=== PATIENT | female | born 1960 | race Two or more races ===

== ENCOUNTER 2019-08-22 12:14 | Outpatient (CLI) | payer MEDICARE, MEDICAID | END 2019-08-22 12:15 | disposition home or self-care (01) | LOC: RT 12:14 | PROVIDERS: ATTEND Internal Medicine Cardiovascular Disease | DX: I10 Essential (primary) hypertension (principal); Z13.6 Encounter for screening for cardiovascular disorders | CPT/HCPCS: 93005 ==

== ENCOUNTER 2019-12-03 16:55 | Outpatient (CLI) | payer MEDICARE, MEDICAID ==
--- NOTE | 2019-12-04 02:44 | Ultrasound Report ---
Reason: ABNORMAL VAGINAL BLEEDING Procedure Date: 12/03/2019 Accession Number: [id number] / [id number] Procedure: US - Pelvic w/Transvaginal CPT Code: Final Report FULL RESULT: EXAM: PELVIC ULTRASOUND EXAM DATE: 12/03/2019 06:04 PM. CLINICAL HISTORY: ABNORMAL VAGINAL BLEEDING. COMPARISON: None. TECHNIQUE: Realtime transabdominal pelvic scan performed to identify the uterus and adnexa and as an overview of other pelvic structures, followed by transvaginal scan to provide greater detail of the uterus and adnexa, with static image documentation. FINDINGS: Uterus: 7.0 x 3.6 x 5.0 cm, volume 65.8 cc. Anteverted position. Mildly heterogeneous. Masses: Anterior fundal submucosal fibroid measuring 1.9 x 1.8 x 1.6 cm. Endometrium: 4 mm. Heterogeneous ill-defined endometrium is not well seen. Cervix: Unremarkable. Right Ovary: Right ovary not visualized due to body habitus and bowel gas. Left Ovary: Left ovary not visualized due to body habitus and bowel gas. Free Fluid: None. Other: None. IMPRESSION: 1. Small anterior fundal submucosal fibroid measuring 1.9 cm. 2. Heterogeneous ill-defined endometrium. No evidence of endometrial thickening. 3. Ovaries not visualized due to body habitus and bowel gas. RADIA
== END 2019-12-03 16:56 | disposition home or self-care (01) ==
LOC: DI 16:55
PROVIDERS: ATTEND Internal Medicine
DX: D25.0 Submucous leiomyoma of uterus (principal)
CPT/HCPCS: 76830; 76856

== ENCOUNTER 2020-01-01 09:38 | Outpatient (CLI) | payer MEDICARE, MEDICAID ==
[2020-01-01 10:01] LABS: BASOPHILS % (AUTO) 0.2 %; EOSINOPHILS # (AUTO) 0.1 10^3/uL (0.0-0.7); EOSINOPHILS % (AUTO) 1.8 %; HGB - HEMOGLOBIN 12.7 g/dL (12.0-16.0); LYMPHOCYTES # (AUTO) 1.6 10^3/uL (1.5-3.5); LYMPHOCYTES % (AUTO) 37.2 %; MEAN CORPUSCULAR HEMOGLOBIN 31.1 pg (27.0-31.0); MEAN CORPUSCULAR HGB CONC 33.2 g/dL (32.0-36.0); MEAN CORPUSCULAR VOLUME 93.6 fL (81.0-99.0); MEAN PLATELET VOLUME 9.6 fL (7.9-10.8); MONOCYTES # (AUTO) 0.4 10^3/uL (0.0-1.0); MONOCYTES % (AUTO) 9.9 %; NEUTROPHILS # (AUTO) 2.2 10^3/uL (1.5-6.6); NEUTROPHILS % (AUTO) 50.7 %; PLT - PLATELET COUNT 204 10^3/uL (130-450); RED BLOOD COUNT 4.08 10^6/uL (4.20-5.40); RED CELL DISTRIBUTION WIDTH 12.5 % (12.0-15.0); WHITE BLOOD COUNT 4.4 x10^3/uL (4.8-10.8)
== END 2020-01-01 09:39 | disposition home or self-care (01) ==
LOC: LAB 09:38
PROVIDERS: ATTEND Obstetrics & Gynecology
DX: N95.0 Postmenopausal bleeding (principal)
CPT/HCPCS: 36415; 85025

== ENCOUNTER 2021-02-13 19:45 | Emergency (ER) | payer MEDICAID, MEDICARE, OTHER ==
--- OUTSIDE RECORDS SUMMARY | 2021-02-13 20:13 | EXTERNAL MEDICAL SUMMARY RPT | Continuity of Care Document ---
:1960 Demographics Phone Unavailable Preferred Language Unknown Marital Status Unknown Faith Affiliation Unknown Race Unknown Ethnic Group Unknown Author Organization [facility] Address [address] [phone] Phone Allergies Encounters Medications Problems Results
[2021-02-13 20:16] LABS: BASOPHILS % (AUTO) 0.2 %; EOSINOPHILS # (AUTO) 0.1 10^3/uL (0.0-0.7); EOSINOPHILS % (AUTO) 1.1 %; HCT - HEMATOCRIT 37.6 % (37.0-47.0); HGB - HEMOGLOBIN 13.2 g/dL (12.0-16.0); LYMPHOCYTES # (AUTO) 1.3 10^3/uL (1.5-3.5); LYMPHOCYTES % (AUTO) 21.1 %; MEAN CORPUSCULAR HEMOGLOBIN 31.2 pg (27.0-31.0); MEAN CORPUSCULAR HGB CONC 35.1 g/dL (32.0-36.0); MEAN CORPUSCULAR VOLUME 88.9 fL (81.0-99.0); MEAN PLATELET VOLUME 9.8 fL (7.9-10.8); MONOCYTES # (AUTO) 0.6 10^3/uL (0.0-1.0); NEUTROPHILS # (AUTO) 4.3 10^3/uL (1.5-6.6); NEUTROPHILS % (AUTO) 67.3 %; PLT - PLATELET COUNT 226 10^3/uL (130-450); RED BLOOD COUNT 4.23 10^6/uL (4.20-5.40); RED CELL DISTRIBUTION WIDTH 13.2 % (12.0-15.0); WHITE BLOOD COUNT 6.3 x10^3/uL (4.8-10.8)
--- NOTE | 2021-02-13 20:21 | XRAY Report ---
PROCEDURE: Chest 1 View X-Ray INDICATIONS: Chest Pain TECHNIQUE: One view of the chest was acquired. COMPARISON: None FINDINGS: Surgical changes and devices: None. Lungs and pleura: No pleural effusions or pneumothorax. Lungs are clear. Mediastinum: Mediastinal contours appear normal. Heart size is normal. Bones and chest wall: No suspicious bony lesions. Overlying soft tissues appear unremarkable. IMPRESSION: No acute cardiopulmonary disease process. Reviewed by: Arleen Weiss MD, PhD on 02/13/2021 8:19 PM PDT Approved by: Arleen Weiss MD, PhD on 02/13/2021 8:19 PM PDT Station ID: [id number]
[2021-02-13 20:56] LABS: ALBUMIN 4.1 g/dL (3.2-5.5); ALBUMIN/GLOBULIN RATIO 1.3 (1.0-2.2); BILIRUBIN,TOTAL 2.1 mg/dL (0.2-1.0); CALCIUM 9.6 mg/dL (8.5-10.3); CREATININE 0.6 mg/dL (0.4-1.0); POTASSIUM 3.6 mmol/L (3.5-5.0); TOTAL PROTEIN 7.2 g/dL (6.7-8.2)
--- NOTE | 2021-02-13 21:06 | ED Physician Documentation ---
PD HPI CHEST PAIN - Stated complaint Stated Complaint: CHEST PX, LFT ARM PX - Chief complaint Chief Complaint: Cardiac - History obtained from History obtained from: Patient - History of Present Illness Timing - onset: Enter time (02:00), Today Timing - onset during: Sleep Timing - details: Abrupt onset, Constant, Waxing and waning Pain level now: 10 Quality: Pain Location: Substernal Radiation: Neck (right side of neck) Improved by: Nothing Worsened by: Other (no exacerbating factors) Associated symptoms: Nausea. No: Shortness of air, Diaphoresis, Vomiting, Feel ing faint / dizzy, General Weakness, Palpitations, Cough Similar symptoms before: Has not had sx before Recently seen: Not recently seen Review of Systems Constitutional: reports: Reviewed and negative Cardiac: reports: Chest pain / pressure. denies: Palpitations, Pedal edema, Calf pain Respiratory: reports: Reviewed and negative GI: reports: Nausea. denies: Abdominal Pain, Abdominal Swelling, Vomiting, Constipation, Diarrhea : denies: Dysuria, Hematuria Musculoskeletal: denies: Back pain PD PAST MEDICAL HISTORY - Past Medical History Past Medical History: Yes Cardiovascular: Hypertension, High cholesterol - Present Medications Home Medications: Ambulatory Orders Medication Instructions Recorded Confirmed Lidocaine Viscous 2% [Xylocaine 10 ml PO Q6HR PRN #100 ml 02/13/21 Viscous 2%] - Allergies Allergies/Adverse Reactions: Allergies Allergy/AdvReac Type Severity Reaction Status Date / Time pseudoephedrine Allergy Mild Hives Verified 02/13/21 21:26 PD ED PE NORMAL - Vitals Vital signs reviewed: Yes - General General: Alert and oriented X 3, No acute distress, Well developed/nourished - HEENT HEENT: Moist mucous membranes - Cardiac Cardiac: RRR, No murmur - Respiratory Respiratory: No respiratory distress, Clear bilaterally - Abdomen Abdomen: Normal bowel sounds, Soft, Non tender, Non distended - Back Back: No CVA TTP - Neuro Neuro: Alert and oriented X 3 PD ED PE EXPANDED - Extremities Extremities: Pedal edema bilateral (mild/1+) LUZMARIA LE visual: 1 - rash (confluent, flat erythema with faint margins, no abnormal heat to touch) Results - Vitals Vitals: Vital Signs - 24 hr 02/13/21 02/13/21 02/13/21 19:56 22:00 23:48 Temperature 36.4 C L Heart Rate 77 73 73 Respiratory 24 18 18 Rate Blood Pressure 184/89 H 170/53 H 161/66 H O2 Saturation 96 97 95 Oxygen O2 Source Room air - EKG (time done) No standard instances Rate: Rate (enter#) (77) Rhythm: NSR [place]: LAD Intervals: Other (borderline IVCD) QRS: Poor R wave progression Ischemia: Normal ST segments Compare to prior EKG: Unchanged from prior EKG - Labs Labs: Laboratory Tests 02/13/21 02/13/21 02/13/21 20:10 20:10 20:10 WBC 6.3 RBC 4.23 Hgb 13.2 Hct 37.6 MCV 88.9 MCH 31.2 H MCHC 35.1 RDW 13.2 Plt Count 226 MPV 9.8 Neut # (Auto) 4.3 Lymph # (Auto) 1.3 L [place] # (Auto) 0.6 Eos # (Auto) 0.1 Baso # (Auto) 0.0 Absolute Nucleated RBC 0.00 Nucleated RBC % 0.0 Sodium 136 Potassium 3.6 Chloride 94 L Carbon Dioxide 29 Anion Gap 13.0 BUN 8 Creatinine 0.6 Estimated GFR (MDRD) 102 Glucose 375 H POC Whole Bld Glucose Calcium 9.6 Total Bilirubin 2.1 H AST 70 H ALT 50 Alkaline Phosphatase 87 Troponin I High Sens 10.0 Total Protein 7.2 Albumin 4.1 Globulin 3.1 Albumin/Globulin Ratio 1.3 Lipase 23 02/13/21 23:42 WBC RBC Hgb Hct MCV MCH MCHC RDW Plt Count MPV Neut # (Auto) Lymph # (Auto) [place] # (Auto) Eos # (Auto) Baso # (Auto) Absolute Nucleated RBC Nucleated RBC % Sodium Potassium Chloride Carbon Dioxide Anion Gap BUN Creatinine Estimated GFR (MDRD) Glucose POC Whole Bld Glucose 322 H Calcium Total Bilirubin AST ALT Alkaline Phosphatase Troponin I High Sens Total Protein Albumin Globulin Albumin/Globulin Ratio Lipase - Rads (name of study) chest xray Radiology: Prelim report reviewed, See rad report PD MEDICAL DECISION MAKING - ED course Complexity details: reviewed old records, reviewed results, re-evaluated patient, considered differential, d/w patient ED course: incidental note of LLE cellulitis on exam which patient is aware of, says this is not a new finding. no concerning findings on EKG, which is unchanged from previous. reassuring blood tests including troponin. hyperglycemic with mild improvement after IV fluids and IV insulin. Results d/w patient, she is comfortable with d/c home. She was in NAD on reevaluation after tests resulted and felt much improved after IV toradol and PO maalox/viscous lidocaine Departure - Departure Disposition: Home, Self Care Clinical Impression: Hyperglycemia Chest pain Qualifiers: Chest pain type: unspecified Qualified Code(s): R07.9 - Chest pain, unspecified Condition: Good Instructions: ED Chest Pain Atypical Unkn Cause, ED Hyperglycemia Diabetic Prescriptions: Lidocaine Viscous 2% [Xylocaine Viscous 2%] 10 ml PO Q6HR PRN #100 ml PRN Reason: Abdominal Pain Comments: Follow up with your primary care provider; call Monday to arrange for next available appointment Discharge Date/Time: 02/14/21 00:09
[2021-02-13] MEDS ORDERED: MAG HYDROX/AL HYDROX/SIMETH 30 ML UDC PO STA (21:24)
[2021-02-13] MEDS ORDERED: SODIUM CHLORIDE 0.9% 1,000 ML IV STA (21:24)
[2021-02-13] MEDS ORDERED: LIDOCAINE VISCOUS 2% 15 ML UDC MM STA (21:24)
[2021-02-13] MEDS ORDERED: INSULIN REGULAR HUMAN 100 UNIT/1 ML 10 ML MDV IVP STA (21:25)
[2021-02-13] MEDS ORDERED: KETOROLAC 30 MG/ML VIAL IVP STA (21:25)
[2021-02-13] MEDS ORDERED: IOVERSOL 320 100 ML VIAL IVP ONE ×2 (21:41→22:33)
[2021-02-13] MEDS ORDERED: ONDANSETRON 4 MG/2 ML VIAL IVP STA (21:56)
[2021-02-13 23:48] VITALS: BP 161/66
--- NOTE | 2021-02-14 10:29 | CT Report ---
PROCEDURE: ANGIO CHEST W INDICATIONS: chest pain CONTRAST: IV CONTRAST: Optiray 320 ml: 100 PO CONTRAST: *NO PO CONTRAST TECHNIQUE: After the administration of intravenous contrast, 2 mm thick sections acquired from the pulmonary api eren to the posterior costophrenic angles. 3-dimensional maximum intensity projection (MIP) coronal a nd sagittal reformats were then acquired through the thorax. For radiation dose reduction, the follow ing was used: automated exposure control, adjustment of mA and/or kV according to patient size. COMPARISON: Correlation is made with chest radiograph, 02/13/2021. FINDINGS: Image quality: Excellent. Pulmonary arteries: Pulmonary arteries are normal in size, and demonstrate no intraluminal filling d efects to suggest central pulmonary embolism. Lungs and pleura: Lungs are clear. No pleural effusions or pneumothorax. Central and peripheral ai rways are patent. Mediastinum: Heart size is normal, without pericardial effusion. There is moderate coronary artery c alcification. No mediastinal or hilar adenopathy. Thoracic aorta is normal in caliber and enhanceme nt. Esophagus is normal in caliber.There is a small hiatal hernia. Bones and chest wall: No suspicious bony lesions. Ribs and thoracic spine appear intact throughout. Age-appropriate degenerative changes are seen. No axillary or supraclavicular adenopathy. The th yroid is normal in size and there are no incidental findings. Abdomen: Bariatric surgery can be seen. Diffuse fatty liver infiltration can be seen. The visuali zed portions of the upper abdominal structures are otherwise within normal limits. IMPRESSION: Negative for pulmonary embolism. Clear lungs. Incidental note is made of: Moderate coronary artery calcification Small hiatal hernia Bariatric surgery Cholecystectomy Fatty liver infiltration Note: No significant discrepancy from the preliminary report. Reviewed by: Tino Johnson MD on 02/14/2021 9:28 AM GRAHAM Approved by: Tino Johnson MD on 02/14/2021 9:28 AM [place] Station ID: [id number]
== END 2021-02-14 00:09 | disposition home or self-care (01) ==
LOC: ED 19:45
DX: R07.9 Chest pain, unspecified (principal); R73.9 Hyperglycemia, unspecified; L03.116 Cellulitis of left lower limb; I10 Essential (primary) hypertension
CPT/HCPCS: 36415; 71045; 71275; 80053; 83690; 84484; 85025; 93005; 96361; 96374; 96375; 99284; A9270; J1815; Q9967

== ENCOUNTER 2023-11-06 07:07 | Outpatient (CLI) | payer MEDICARE ==
[2023-11-06 15:29] LABS: BASOPHILS % (AUTO) 0.4 %; EOSINOPHILS # (AUTO) 0.1 10^3/uL (0.0-0.7); EOSINOPHILS % (AUTO) 2.2 %; HCT - HEMATOCRIT 33.2 % (37.0-47.0); HGB - HEMOGLOBIN 10.7 g/dL (12.0-16.0); LYMPHOCYTES # (AUTO) 2.4 10^3/uL (1.5-3.5); LYMPHOCYTES % (AUTO) 53.2 %; MEAN CORPUSCULAR HEMOGLOBIN 30.6 pg (27.0-31.0); MEAN CORPUSCULAR HGB CONC 32.2 g/dL (32.0-36.0); MEAN CORPUSCULAR VOLUME 94.9 fL (81.0-99.0); MONOCYTES # (AUTO) 0.4 10^3/uL (0.0-1.0); MONOCYTES % (AUTO) 8.6 %; NEUTROPHILS # (AUTO) 1.6 10^3/uL (1.5-6.6); NEUTROPHILS % (AUTO) 35.4 %; PLT - PLATELET COUNT 277 10^3/uL (130-450); RED CELL DISTRIBUTION WIDTH 12.5 % (12.0-15.0); WHITE BLOOD COUNT 4.5 x10^3/uL (4.8-10.8)
[2023-11-06 15:36] LABS: ALBUMIN 4.2 g/dL (3.2-5.5); ALBUMIN/GLOBULIN RATIO 1.4 (1.0-2.2); ALKALINE PHOSPHATASE 37 IU/L (42-121); ALT ALANINE AMINOTRANSFERASE 21 IU/L (10-60); AST ASPARTATE AMINOTRANSFERASE 21 IU/L (10-42); BILIRUBIN,TOTAL 0.6 mg/dL (0.2-1.0); BUN - BLOOD UREA NITROGEN 21 mg/dL (6-20); CALCIUM 9.7 mg/dL (8.5-10.3); CARBON DIOXIDE - CO2 29 mmol/L (21-32); CHLORIDE 105 mmol/L (101-111); CHOL/HDL RATIO 2.4 (<4.4); CHOLESTEROL 133 mg/dL; CREATININE 0.8 mg/dL (0.6-1.3); GFR - MDRD 72 (>89); GLUCOSE 110 mg/dL (74-104); HDL CHOLESTEROL 56 mg/dL; LDL CHOLESTEROL,CALCULATED 46 mg/dL; LDL/HDL RATIO 0.8 (<4.4); POTASSIUM 4.6 mmol/L (3.5-4.5); SODIUM 139 mmol/L (135-145); TOTAL PROTEIN 7.1 g/dL (6.4-8.9); TRIGLYCERIDES 156 mg/dL (48-352); VLDL CHOLESTEROL 31 mg/dL
[2023-11-06 15:52] LABS: THYROID STIMULATING HORMONE 2.51 uIU/mL (0.34-5.60)
[2023-11-06 16:02] LABS: CREATININE,URINE 99.2 mg/dL; MICROALBUM/CREATININE RATIO,UR 44.4 ug/mg (<30.0); MICROALBUMIN,URINE 4.4 mg/dL
[2023-11-06 16:11] LABS: ESTIMATED AVERAGE GLUCOSE 151 mg/dL (70-100); HEMOGLOBIN A1c% 6.9 % (4.27-6.07)
== END 2023-11-06 07:08 | disposition home or self-care (01) ==
LOC: LAB.S 07:07
PROVIDERS: ATTEND Physician Assistant Medical
DX: Z00.00 Encounter for general adult medical examination without abnormal findings (principal); E11.42 Type 2 diabetes mellitus with diabetic polyneuropathy
CPT/HCPCS: 36415; 80053; 80061; 82043; 82570; 83036; 83721; 84443; 85025

== ENCOUNTER 2024-01-08 07:40 | Outpatient (CLI) | payer MEDICARE ==
[2024-01-08 14:48] LABS: BASOPHILS % (AUTO) 0.5 %; EOSINOPHILS # (AUTO) 0.1 10^3/uL (0.0-0.7); EOSINOPHILS % (AUTO) 2.5 %; HCT - HEMATOCRIT 31.3 % (37.0-47.0); HGB - HEMOGLOBIN 10.4 g/dL (12.0-16.0); LYMPHOCYTES # (AUTO) 2.1 10^3/uL (1.5-3.5); MEAN CORPUSCULAR HEMOGLOBIN 30.1 pg (27.0-31.0); MEAN CORPUSCULAR HGB CONC 33.2 g/dL (32.0-36.0); MEAN CORPUSCULAR VOLUME 90.7 fL (81.0-99.0); MEAN PLATELET VOLUME 10.4 fL (7.9-10.8); MONOCYTES # (AUTO) 0.4 10^3/uL (0.0-1.0); NEUTROPHILS # (AUTO) 1.7 10^3/uL (1.5-6.6); NEUTROPHILS % (AUTO) 39.5 %; PLT - PLATELET COUNT 292 10^3/uL (130-450); RED BLOOD COUNT 3.45 10^6/uL (4.20-5.40); RED CELL DISTRIBUTION WIDTH 12.6 % (12.0-15.0); WHITE BLOOD COUNT 4.4 x10^3/uL (4.8-10.8)
[2024-01-08 15:08] LABS: ALBUMIN 4.2 g/dL (3.2-5.5); ALBUMIN/GLOBULIN RATIO 1.5 (1.0-2.2); BILIRUBIN,TOTAL 0.7 mg/dL (0.2-1.0); CALCIUM 9.9 mg/dL (8.5-10.3); CREATININE 0.9 mg/dL (0.6-1.3); POTASSIUM 4.2 mmol/L (3.5-4.5)
[2024-01-08 15:10] LABS: ESTIMATED AVERAGE GLUCOSE 137 mg/dL (70-100); HEMOGLOBIN A1c% 6.4 % (4.27-6.07)
== END 2024-01-08 07:41 | disposition home or self-care (01) ==
LOC: LAB.S 07:40
PROVIDERS: ATTEND Physician Assistant Medical
DX: Z00.00 Encounter for general adult medical examination without abnormal findings (principal); E11.40 Type 2 diabetes mellitus with diabetic neuropathy, unspecified
CPT/HCPCS: 36415; 80053; 83036; 85025

== ENCOUNTER 2024-01-25 08:42 | Outpatient (CLI) | payer MEDICARE ==
--- NOTE | 2024-01-25 09:28 | Sleep Patient Instructions ---
Sleep Center Visit Summary - Patient Visit Information Reason for Visit: Initial consult for evaluation of sleep disordered breathing and other sleep issues. - Patient Instructions Additional Instructions: You will be completing a sleep study, either an in-lab polysomnography (PSG) or home sleep study (HST). You will follow-up in the sleep care office after the sleep study is completed to hear the results and talk about therapy, if needed. You will be called by our office staff to schedule this appointment, but you may contact us with any questions. - Clinic Information Contact: [facility] [address] [place] [id number] [email or web address] T: [phone]
--- NOTE | 2024-01-25 09:30 | SLEEP CARE CONSULTATION ---
Information from patient questionnaire entered by Varsha Montes. I have reviewed and concur with the information entered by Varsha Montes. This document represents the service I personally performed and the decisions made by me, Ligia Stovall ARNP. History of Present Illness Service Date and Time: 01/25/2024 0842 Reason for Visit: New patient, Previously diagnosed sleep apnea Chief Complaint: reports: Insomnia, Snoring Usual bedtime: 2230 Time it takes to fall asleep: SOMETIMES AN HR Snores at night: Yes Observed to quit breathing while asleep: Yes Sleeps alone due to snoring: No Number of times waking at night: 1 Reasons for waking at night: reports: Bathroom. denies: Choking, Snoring, Gasping for air Toss, Turn, or Twitch while sleeping: No Recalls having dreams: No Usually gets out of bed at: 0800 Feels refreshed in the morning: Yes Morning headache: Yes (daily for last 2 weeks; off/on before this) Sleepy or fatigued during the day: Yes Ever fallen asleep while driving: No Takes day naps: No Dreams during day naps: No Prior sleep studies: Yes Additional HPI information: I had the pleasure of seeing FRANCISCO JAVIER AGUILAR today regarding the possibility of her having a sleep disorder. Her current complaints are insomnia and snoring. She says she was originally diagnosed with sleep apnea before 2009 and was on a CPAP. She has not used a CPAP for 2-3 years because her CPAP was on the Darrin machines and then the pressure was "too much". She tried to get a replacement but was not able to get one because of shortages. She has lost over 100 pounds of weight after getting the gastric sleeve bariatric surgery done. She would like to see if she needs her CPAP. She says she goes to bed around 10:30 PM and can take up to an hour to fall asleep as long as she takes melatonin or TylenolPM. If she does not take either than she will be up for a couple hours or more. - Parasomnia Symptoms Ever been unable to move upon waking from sleep: No Walks in sleep: No Talks in sleep: No Ever acted out dreams in sleep: No Ever felt weak in the knees when startled or emotional: No Bothered by creepy, crawly, restless sensations in legs: No Problems with memory or concentration: No Subjective Initial [place] Sleepiness Scale score: 4 (01/25/24) Past Medical History Past Medical History: reports: Hypertension, Diabetes, Arthritis, Fibromyalgia Social History The patient's occupation is a RE. Patient is and lives in [place]. Have you smoked in the past 12 months: No Cigarettes per day (20/pack): 3 Years of smokin Quit date: 2019 Smoking Pack Years: 1.0 Alcohol use: Yes Alcohol amount and frequency: A LOT WEEKENDS; stopped [id number] Caffeine use: Yes Caffeine amount and frequency: 2-3 SODAS DAILY Family History Family history of sleep disordered breathing: Yes Family Hx Sleep Apnea: Sibling: Snoring, Sleep apnea - Treated Allergies and Home Medications Known drug allergies: Yes (as listed) Drug allergies reviewed: Yes Home medication list reviewed: Yes (as listed, as far as she can remember) Allergy and home medication list: Allergies pseudoephedrine Allergy (Mild, Verified 01/22/24 11:15) Hives Medications Atorvastatin Atenolol Metformin 1000 mg bid Glipizide Cilostazol Fenofibrate Humira, every 2 weeks Trulicity, weekly Tylenol PM, prn Tylenol, daily Melatonin, prn Multivitamin Review of Systems Weight loss over past 5 years: 40 Cardiovascular: reports: high blood pressure Gastrointestinal: reports: heartburn, diarrhea Psychiatric: reports: anxiety, depression Ear/Nose/Throat: reports: sinus problems. denies: tonsillectomy Musculoskeletal: reports: joint pain, back pain, joint swelling Immunologic: reports: sneezing Physical Exam Vital signs obtained and entered by: VARSHA Palafox MA Blood Pressure: 133/76 (RIGHT) Cuff size: wrist Heart Rate: 58 O2 Saturation: 99 Height: 4 ft 11.5 in Weight: 179 lb Body Mass Index: 35.5 BMI Classification: Obese Neck circumference: 14.5 Mouth and throat: narrow oropharynx Soft palate: long Hard palate: normal Uvula: normal Uvula visualization: 25% Mallampati Class III Tongue: enlarged in size with teeth pickett on lateral edges Tonsils: small Neck: normal w/o lymphadenopathy or thyromegaly Heart: regular rate and rhythm Lungs: clear bilaterally Impression and Plan 1. Suspected Obstructive Sleep Apnea-Hypopnea Syndrome, as previously diagnosed and as suggested by a history of loud and irregular snoring. She was on a CPAP but has not been using one for 2-3 years because she lost over 100 pounds after bariatric surgery and the pressure felt too high. I recommend proceeding to polysomnography to confirm the diagnosis and to assess severity. I obtained agreement to proceed. The pathophysiology of obstructive sleep apnea-hypopnea syndrome was discussed with the patient and health risks of cardiovascular and cerebrovascular disease if not treated. Risks of drowsy driving discussed in detail and patient advised to avoid long distance driving and to tail puller at the first sign of drowsiness. Patient agreed to plan. * Schedule polysomnography. * Avoid long distance driving or driving when feeling sleepy. * Avoid alcohol, sedative and muscle relaxant around bedtime. * Attempt to lose weight. * Review instructions provided by trained office staff on how to prepare for the sleep study. * Return for follow-up after sleep study completed. Counseling Topics: Weight loss health impact Plan: PSG and followup Visit Type: In Office Time Spent with Patient (minutes): 30 Provider Statement: I spent 100% of the Face to Face Visit with the patient with greater than 50% spent counseling the patient and coordination of care.
[2024-01-25 09:45] VITALS: BP 133/76; O2SAT 99
== END 2024-01-25 08:43 | disposition home or self-care (01) ==
LOC: SC 08:42
PROVIDERS: ATTEND Nurse Practitioner Family
DX: R06.83 Snoring (principal); E66.9 Obesity, unspecified; Z68.35 Body mass index [BMI] 35.0-35.9, adult; Z98.84 Bariatric surgery status; Z87.891 Personal history of nicotine dependence
CPT/HCPCS: 99203; G0463; 99212

== ENCOUNTER 2024-06-07 09:06 | Outpatient (CLI) | payer MEDICARE ==
[2024-06-07 15:08] LABS: BASOPHILS % (AUTO) 0.5 %; EOSINOPHILS # (AUTO) 0.1 10^3/uL (0.0-0.7); EOSINOPHILS % (AUTO) 2.3 %; HCT - HEMATOCRIT 33.5 % (37.0-47.0); HGB - HEMOGLOBIN 10.6 g/dL (12.0-16.0); LYMPHOCYTES # (AUTO) 1.7 10^3/uL (1.5-3.5); LYMPHOCYTES % (AUTO) 43.3 %; MEAN CORPUSCULAR HGB CONC 31.6 g/dL (32.0-36.0); MEAN CORPUSCULAR VOLUME 91.8 fL (81.0-99.0); MEAN PLATELET VOLUME 10.1 fL (7.9-10.8); MONOCYTES # (AUTO) 0.3 10^3/uL (0.0-1.0); MONOCYTES % (AUTO) 8.4 %; NEUTROPHILS # (AUTO) 1.8 10^3/uL (1.5-6.6); PLT - PLATELET COUNT 325 10^3/uL (130-450); RED BLOOD COUNT 3.65 10^6/uL (4.20-5.40); RED CELL DISTRIBUTION WIDTH 12.4 % (12.0-15.0); WHITE BLOOD COUNT 3.9 x10^3/uL (4.8-10.8)
[2024-06-07 15:37] LABS: ALBUMIN 4.3 g/dL (3.2-5.5); ALBUMIN/GLOBULIN RATIO 1.4 (1.0-2.2); BILIRUBIN,TOTAL 0.6 mg/dL (0.2-1.0); CALCIUM 9.7 mg/dL (8.5-10.3); CREATININE 0.9 mg/dL (0.6-1.3); POTASSIUM 4.6 mmol/L (3.5-4.5); TOTAL PROTEIN 7.4 g/dL (6.4-8.9)
== END 2024-06-07 09:07 | disposition home or self-care (01) ==
LOC: LAB.S 09:06
DX: M17.12 Unilateral primary osteoarthritis, left knee (principal); M25.562 Pain in left knee
CPT/HCPCS: 36415; 80053; 85025